=== PATIENT | male | born 1975 | race Caucasian/White ===

== ENCOUNTER 2019-08-07 07:57 | Inpatient (IN) | payer MEDICAID ==
[~2019-08-07] VITALS: Ht 177.8 cm; Wt 72.7 kg
[~2019-08-07 07:57] MED LIST: DIPH-518 PO
[2019-08-07] MEDS ORDERED: normal saline 1000ML IV soln IV ONE (08:35)
[2019-08-07 08:54] LABS: BASOPHILS % (AUTO) 0.2 % (0-1); EOSINOPHILS % (AUTO) 0.2 % (0-6); HEMATOCRIT 50.2 % (42.0-52.0); HEMOGLOBIN 17.2 g/dl (14.0-17.9); LYMPHOCYTES # (AUTO) 1.8 X10'3 (1.1-4.8); LYMPHOCYTES % (AUTO) 11.9 % (21-51); MEAN CORPUSCULAR HEMOGLOBIN 30.3 PG (27.0-31.0); MEAN CORPUSCULAR HGB CONC 34.2 g/dL (33.0-36.5); MEAN CORPUSCULAR VOLUME 88.4 FL (78-98); MEAN PLATELET VOLUME 9.6 FL (7.4-10.4); MONOCYTES # (AUTO) 1.4 X10'3 (0-0.9); MONOCYTES % (AUTO) 9.3 % (2-12); NEUTROPHILS # (AUTO) 11.6 X10'3 (1.8-7.7); NEUTROPHILS % (AUTO) 78.4 % (42-75); PLATELET COUNT 374 X10'3 (140-440); RED BLOOD COUNT 5.69 X10'6 (4.70-6.10); RED CELL DISTRIBUTION WIDTH 12.6 % (11.5-14.5); WHITE BLOOD COUNT 14.8 X10'3 (4.5-11.0)
[2019-08-07 09:03] LABS: PARTIAL THROMBOPLASTIN TIME 32 SECONDS (22-32)
[2019-08-07 09:06] LABS: ALANINE AMINOTRANSFERASE 13 U/L (12-78); ALBUMIN 3.8 G/DL (3.4-5.0); ALBUMIN/GLOBULIN RATIO 0.7 (1.1-1.5); ALKALINE PHOSPHATASE 99 IU/L (46-116); ANION GAP 9 (8-16); ASPARTATE AMINO TRANSFERASE 21 U/L (10-37); BILIRUBIN,TOTAL 0.8 MG/DL (0.1-1.0); BLOOD UREA NITROGEN 40 MG/DL (7-18); BUN/CREATININE RATIO 26.3 (5.4-32.0); CALCIUM 9.2 MG/DL (8.5-10.1); CHLORIDE 89 MMOL/L (99-107); CREATININE 1.52 MG/DL (0.60-1.10); GLUCOSE 123 MG/DL (70-104); POTASSIUM 3.6 MMOL/L (3.5-5.1); SODIUM 130 MMOL/L (135-145); TOTAL CARBON DIOXIDE 32.2 MMOL/L (24-32); TOTAL PROTEIN 8.9 G/DL (6.4-8.2); eGFR 50 ML/MIN
[2019-08-07] MEDS ORDERED: iohexol 300mg/ml 100ml inj. ONE (09:35)
[2019-08-07] MEDS ORDERED: magnesium 4gm in 100ml NS 100 ML IV PRN (10:50)
[2019-08-07] MEDS ORDERED: potassium Cl 20 mEq SR tablet PO PRN ×2 (10:50)
[2019-08-07] MEDS ORDERED: potassium CL 10mEq/100ml bag 100 ML IV PRN (10:50)
[2019-08-07] MEDS ORDERED: acetaminophen 650mg rectal suppository RC PRN (10:50)
[2019-08-07] MEDS ORDERED: magnesium 2GM in 50ml NS 50 ML IV PRN (10:50)
[2019-08-07] MEDS ORDERED: magnesium Cl slow-release 64mg tablet PO PRN (10:50)
[2019-08-07] MEDS ORDERED: ondansetron/PF 4mg/2ml inj IV ONE (11:30)
[2019-08-07] MEDS: pantoprazole 40 MG vial IV SCH (11:35)
[2019-08-07] MEDS: normal saline 1000ml 1,000 ML IV SCH ×2 (11:35→20:57)
[2019-08-07 12:01] LABS: CLARITY,URINE CLEAR (Clear); COLOR,URINE YELLOW (Yellow); GLUCOSE, URINE NEGATIVE (Neg); KETONES,URINE 40 mg/dl (Neg); LEUKOCYTE ESTERASE ,URINE NEGATIVE (Neg); NITRITES, URINE NEGATIVE (Neg); OCCULT BLOOD,URINE NEGATIVE (Neg); PROTEIN,URINE NEGATIVE (Neg); UROBILINOGEN,URINE 0.2 E.U/dL (0.2-1.0)
--- NOTE | 2019-08-07 12:01 | NUR ---
Received patient report from ER nurse Gabriella DHILLON. Awaiting arrival to room 4012A.
[2019-08-07 12:10] LABS: UA COLLECTION TYPE CLN CATCH MIDSTREAM
[2019-08-07 12:30] VITALS: BP 106/70
--- NOTE | 2019-08-07 12:54 | NUR ---
Dr. Camargo seen and examined patient. Patient stated he is passing gas, abdomen soft and not distended.
[2019-08-07] MEDS ORDERED: NO HOME MEDS (12:57)
--- NOTE | 2019-08-07 12:59 | NUR ---
Spoke with Dr. Juarez over phone and informed him that pt is passing gas, has good bowel sounds, no emesis. MD stated to leave NG tube out.
[2019-08-07] MEDS: HYDROmorphone inj. 0.5 MG/0.5 ML DISP.SYRIN IV PRN ×2 (15:24→19:22)
[2019-08-07] MEDS: ondansetron/PF 4mg/2ml inj IV PRN (17:37)
[2019-08-07 18:00] VITALS: BP 109/73
--- NOTE | 2019-08-07 18:19 | NUR ---
Problems reprioritized. Patient report given, questions answered & plan of care reviewed with Nehal DHILLON.
--- NOTE | 2019-08-07 18:52 | NUR ---
Patient in room ORTHO 4015. I have received report from Renee DHILLON and had the opportunity to ask questions and assume patient care.
[2019-08-07] MEDS: K and/or MAG REPLACEMENT MC SCH (20:00)
[2019-08-07] MEDS: diatr meglu/diatrizoate 30ml oral sol.-(3 dose) bottle PO SCH (21:09)
[2019-08-07 22:00] VITALS: BP 119/66
[2019-08-08] VITALS (17 sets, daily range): BP systolic 98–142; BP diastolic 59–89
[2019-08-08] MEDS: ketorolac trometh. 30mg/ml inj. IV PRN ×2 (00:03→20:35)
[2019-08-08] MEDS: ondansetron/PF 4mg/2ml inj IV PRN ×2 (00:09→11:23)
[2019-08-08] MEDS: proCHLORperazine 10 MG/2 ml inj IV PRN ×2 (01:23→07:30)
[2019-08-08] MEDS: HYDROmorphone inj. 0.5 MG/0.5 ML DISP.SYRIN IV PRN (05:06)
[2019-08-08] MEDS: normal saline 1000ml 1,000 ML IV SCH ×2 (05:45→19:15)
[2019-08-08 05:47] LABS: BASOPHILS % (AUTO) 0.5 % (0-1); EOSINOPHILS # (AUTO) 0.1 X10'3 (0-0.9); HEMATOCRIT 41.4 % (42.0-52.0); HEMOGLOBIN 14.2 g/dl (14.0-17.9); LYMPHOCYTES # (AUTO) 1.2 X10'3 (1.1-4.8); LYMPHOCYTES % (AUTO) 21.4 % (21-51); MEAN CORPUSCULAR HEMOGLOBIN 30.3 PG (27.0-31.0); MEAN CORPUSCULAR HGB CONC 34.3 g/dL (33.0-36.5); MEAN CORPUSCULAR VOLUME 88.3 FL (78-98); MEAN PLATELET VOLUME 9.6 FL (7.4-10.4); MONOCYTES # (AUTO) 0.9 X10'3 (0-0.9); MONOCYTES % (AUTO) 15.4 % (2-12); NEUTROPHILS # (AUTO) 3.5 X10'3 (1.8-7.7); NEUTROPHILS % (AUTO) 60.7 % (42-75); PLATELET COUNT 285 X10'3 (140-440); RED BLOOD COUNT 4.69 X10'6 (4.70-6.10); RED CELL DISTRIBUTION WIDTH 12.2 % (11.5-14.5); WHITE BLOOD COUNT 5.8 X10'3 (4.5-11.0)
[2019-08-08 05:59] LABS: ALANINE AMINOTRANSFERASE 13 U/L (12-78); ALBUMIN 3.1 G/DL (3.4-5.0); ALBUMIN/GLOBULIN RATIO 0.9 (1.1-1.5); ALKALINE PHOSPHATASE 73 IU/L (46-116); ANION GAP 6 (8-16); ASPARTATE AMINO TRANSFERASE 27 U/L (10-37); BILIRUBIN,TOTAL 0.7 MG/DL (0.1-1.0); BLOOD UREA NITROGEN 28 MG/DL (7-18); BUN/CREATININE RATIO 24.3 (5.4-32.0); CALCIUM 8.2 MG/DL (8.5-10.1); CHLORIDE 97 MMOL/L (99-107); CREATININE 1.15 MG/DL (0.60-1.10); GLUCOSE 102 MG/DL (70-104); POTASSIUM 3.3 MMOL/L (3.5-5.1); SODIUM 134 MMOL/L (135-145); TOTAL CARBON DIOXIDE 31.2 MMOL/L (24-32); TOTAL PROTEIN 6.4 G/DL (6.4-8.2); eGFR 69 ML/MIN
--- NOTE | 2019-08-08 06:16 | NUR ---
Problems reprioritized. Patient report given, questions answered & plan of care reviewed with Zuleyma DHILLON.
--- NOTE | 2019-08-08 06:30 | NUR ---
Patient in room ORTHO 4015. I have received report from Nehal DHILLON and had the opportunity to ask questions and assume patient care.
[2019-08-08] MEDS: diatr meglu/diatrizoate 30ml oral sol.-(3 dose) bottle PO SCH ×2 (07:30→10:19)
[2019-08-08] MEDS: pantoprazole 40 MG vial IV SCH (07:30)
[2019-08-08] MEDS: potassium CL 10mEq/100ml bag 100 ML IV PRN ×4 (07:31→19:16)
[2019-08-08] MEDS ORDERED: enoxaparin 40mg/0.4ml syringe SUBCUT SCH (08:00)
[2019-08-08] MEDS: K and/or MAG REPLACEMENT MC SCH ×2 (08:00→20:00)
[2019-08-08 08:19] LABS: PLATELET ESTIMATE NORMAL; TOTAL CELLS COUNTED 100
--- NOTE | 2019-08-08 09:05 | NUR ---
Patient stated he felt better and did not threw up after I gave the compazine then the oral contrast. CT scan staff gave me an estimated time of the CT scan of abdomen today at 10:30am.
[2019-08-08] MEDS: HYDROmorphone 1 mg/ml syringe IV PRN ×2 (11:14→19:07)
--- NOTE | 2019-08-08 13:58 | NUR ---
Patient confirmed to me that Dr. Juarez came by, talked to him about the need for surgery today around 4pm.
[2019-08-08] MEDS ORDERED: clindamycin phosphate 150mg/ml inj. ONE (15:37)
[2019-08-08] MEDS ORDERED: gentamicin 40 MG/1 ML inj ONE (15:37)
[2019-08-08] MEDS ORDERED: ceFOXitin 2 GM ADDVANTGE BAG 50 ML IV ONE (15:37)
[2019-08-08] MEDS ORDERED: ringers solution, lacted 1,000 ML IV SCH (15:43)
[2019-08-08] MEDS ORDERED: morphine 4 MG/ML inj SYRINge IV PRN (15:45)
[2019-08-08] MEDS ORDERED: morphine 2 MG/ML inj. syringe IV PRN (15:45)
[2019-08-08] MEDS ORDERED: labetalol 20mg/4ml (5mg/ml) syringe IV PRN (15:45)
[2019-08-08] MEDS ORDERED: fentaNYL/PF 50MCG/1 ML 2ML syringe IV PRN (15:45)
[2019-08-08] MEDS ORDERED: hydrALAZINE 20mg/ml inj. IV PRN (15:45)
[2019-08-08] MEDS ORDERED: ondansetron/PF 4mg/2ml inj IV PRN (15:45)
[2019-08-08] MEDS ORDERED: LIDOcaine 2% (20mg/ml) 5ml vial ONE (16:08)
[2019-08-08] MEDS ORDERED: propofol inj 20 ML IV ONE (16:08)
[2019-08-08] MEDS ORDERED: rocuronium 10mg/ml inj IV ONE ×2 (16:08→17:10)
[2019-08-08] MEDS ORDERED: dexamethasone sod phosphate 4mg/ml inj. ONE (16:08)
[2019-08-08] MEDS ORDERED: ondansetron/PF 4mg/2ml inj ONE (16:08)
[2019-08-08] MEDS ORDERED: fentaNYL/PF 50MCG/1 ML 2ML syringe ONE (16:09)
[2019-08-08] MEDS ORDERED: ceFOXitin 2 GM ADDvantage bag 100 ML IV ONE (16:35)
[2019-08-08] MEDS ORDERED: ceFOXitin sod/dextrose 2g/50ml 50 ML IV ONE (16:35)
[2019-08-08] MEDS ORDERED: sevoflurane 250ml liquid IH ONE (16:38)
[2019-08-08] MEDS ORDERED: sugammadex 200mg/2ml injection IV ONE (17:16)
[2019-08-08] MEDS ORDERED: labetalol 20mg/4ml (5mg/ml) syringe IV ONE (17:17)
--- NOTE | 2019-08-08 17:50 | NUR ---
Received from OR via BED , accompanied by Anesthesiologist DR GARCIA and report given by Anesthesiolgist. PATIENT WAKING UP, DENIES PAIN, V/S WNL, NEUROVASCULAR CHECKS INTACT, 18G PIV LUE, SCD ON, ISLAND DRESSING TO ABDOMEN CDI. NG TUBE TO LWS TO RIGHT NARES WITH DARK BROWNISH GREEN APPROX 40CC IN DRAIN. F/C DRAINING CLEAR YELLOW URINE.
[2019-08-08] MEDS: fentaNYL/PF 50MCG/1 ML 2ML syringe IV PRN ×2 (18:00→18:06)
--- NOTE | 2019-08-08 18:23 | NUR ---
Problems reprioritized. Patient report given, questions answered & plan of care reviewed with Rashida DHILLON.
--- NOTE | 2019-08-08 18:30 | NUR ---
Patient in room ORTHO 4015. I have received report from JACQUIE Amor and had the opportunity to ask questions and assume patient care.
--- NOTE | 2019-08-08 18:40 | NUR ---
PATIENT WAKING UP, DENIES PAIN, V/S WNL, NEUROVASCULAR CHECKS INTACT, 18G PIV LUE, SCD ON, ISLAND DRESSING TO ABDOMEN CDI. NG TUBE TO LWS TO RIGHT NARES WITH DARK BROWNISH GREEN APPROX 40CC IN DRAIN. F/C DRAINING CLEAR YELLOW URINE. PATIENT TAKEN TO 4015B WITH ALL BELONGINGS AND HOOKED UP TO MONITORS IN ROOM AND REPORT GIVEN TO INSULATOR TECHNICIAN WHO HAS TAKEN OVER PATIENT CARE.
[2019-08-08] MEDS: ceFOXitin sod/dextrose 2g/50ml 50 ML IV SCH (20:38)
[2019-08-09] MEDS: HYDROmorphone 1 mg/ml syringe IV PRN ×6 (01:23→22:36)
[2019-08-09] MEDS: ceFOXitin sod/dextrose 2g/50ml 50 ML IV SCH ×4 (01:23→19:40)
[2019-08-09 02:45] VITALS: BP 118/71
[2019-08-09] MEDS: normal saline 1000ml 1,000 ML IV SCH ×3 (02:50→23:28)
[2019-08-09] MEDS: ketorolac trometh. 30mg/ml inj. IV PRN ×3 (03:24→18:56)
[2019-08-09 06:00] VITALS: BP 123/69
[2019-08-09 06:11] LABS: ALANINE AMINOTRANSFERASE 13 U/L (12-78); ALBUMIN 2.8 G/DL (3.4-5.0); ALBUMIN/GLOBULIN RATIO 0.8 (1.1-1.5); ALKALINE PHOSPHATASE 66 IU/L (46-116); ANION GAP 8 (8-16); ASPARTATE AMINO TRANSFERASE 22 U/L (10-37); BILIRUBIN,TOTAL 0.5 MG/DL (0.1-1.0); BLOOD UREA NITROGEN 24 MG/DL (7-18); CALCIUM 8.5 MG/DL (8.5-10.1); CHLORIDE 101 MMOL/L (99-107); GLUCOSE 100 MG/DL (70-104); MAGNESIUM 2.1 MG/DL (1.5-2.4); POTASSIUM 4.1 MMOL/L (3.5-5.1); SODIUM 133 MMOL/L (135-145); TOTAL CARBON DIOXIDE 24.5 MMOL/L (24-32); TOTAL PROTEIN 6.3 G/DL (6.4-8.2); eGFR 82 ML/MIN
--- NOTE | 2019-08-09 06:24 | NUR ---
Problems reprioritized. Patient report given, questions answered & plan of care reviewed with JACQUIE Beyer and JACQUIE De La Rosa.
[2019-08-09 07:16] LABS: BASOPHILS % (AUTO) 0.3 % (0-1); EOSINOPHILS % (AUTO) 0.5 % (0-6); HEMOGLOBIN 14.3 g/dl (14.0-17.9); LYMPHOCYTES # (AUTO) 0.6 X10'3 (1.1-4.8); LYMPHOCYTES % (AUTO) 12.2 % (21-51); MEAN CORPUSCULAR HEMOGLOBIN 30.1 PG (27.0-31.0); MEAN CORPUSCULAR VOLUME 88.7 FL (78-98); MEAN PLATELET VOLUME 8.7 FL (7.4-10.4); MONOCYTES # (AUTO) 0.6 X10'3 (0-0.9); PLATELET COUNT 303 X10'3 (140-440); RED BLOOD COUNT 4.74 X10'6 (4.70-6.10); RED CELL DISTRIBUTION WIDTH 12.3 % (11.5-14.5); WHITE BLOOD COUNT 5.3 X10'3 (4.5-11.0)
[2019-08-09] MEDS: K and/or MAG REPLACEMENT MC SCH ×2 (08:00→20:00)
[2019-08-09] MEDS: pantoprazole 40 MG vial IV SCH (08:05)
[2019-08-09] MEDS: ondansetron/PF 4mg/2ml inj IV PRN ×2 (08:06→17:04)
--- NOTE | 2019-08-09 08:30 | NUR ---
Encouraging patient to ambulate! Explained importance of ambulation and deep breathing. Patient agrees to walk after pain med. Educated on holding pillow to assist with sitting up and ambulating. Sit up on side of bed, nauseated. Instructed to do knee lifts as he can while RN gets zofran. Return to recline in bed. Patient more receptive to education today. IS given
[2019-08-09 10:00] VITALS: BP 125/70
--- NOTE | 2019-08-09 14:00 | NUR ---
Dr Juarez here earlier. Leave NG tube to low, int suction. May have "sips" of sprite per pt request and a popsicle. Minimal ice chips.
--- NOTE | 2019-08-09 14:41 | NUR ---
Patient is frustrated and wants to go home. Educated to risk of infection, vomiting, recurrent bowel obstruction. Patient calmer and agreeable to staying in hospital following Dr silva. Request popsicles from dietary as stated by Dr Juarez.
[2019-08-09 18:00] VITALS: BP 135/69
--- NOTE | 2019-08-09 18:00 | NUR ---
Patient in room ORTH[facility] 4015. I have received report from JACQUIE Beyer and had the opportunity to ask questions and assume patient care.
--- NOTE | 2019-08-09 18:06 | NUR ---
Problems reprioritized. Patient report given, questions answered & plan of care reviewed with Rashida DHILLON.
[2019-08-09] MEDS: mineral oil/petrolatum, white cream 113gm jar TP SCH (19:40)
[2019-08-09] MEDS: proCHLORperazine 10 MG/2 ml inj IV PRN (20:58)
[2019-08-10] MEDS: ketorolac trometh. 30mg/ml inj. IV PRN ×4 (01:34→22:44)
[2019-08-10] MEDS: ceFOXitin sod/dextrose 2g/50ml 50 ML IV SCH ×4 (01:34→19:36)
[2019-08-10] MEDS: ondansetron/PF 4mg/2ml inj IV PRN ×3 (04:01→22:42)
[2019-08-10] MEDS: HYDROmorphone 1 mg/ml syringe IV PRN ×4 (04:01→19:45)
[2019-08-10 05:43] LABS: BASOPHILS % (AUTO) 0.3 % (0-1); EOSINOPHILS # (AUTO) 0.1 X10'3 (0-0.9); EOSINOPHILS % (AUTO) 1.7 % (0-6); HEMATOCRIT 37.5 % (42.0-52.0); HEMOGLOBIN 12.9 g/dl (14.0-17.9); LYMPHOCYTES # (AUTO) 0.7 X10'3 (1.1-4.8); LYMPHOCYTES % (AUTO) 15.7 % (21-51); MEAN CORPUSCULAR HEMOGLOBIN 30.8 PG (27.0-31.0); MEAN CORPUSCULAR HGB CONC 34.4 g/dL (33.0-36.5); MEAN CORPUSCULAR VOLUME 89.5 FL (78-98); MONOCYTES # (AUTO) 0.6 X10'3 (0-0.9); MONOCYTES % (AUTO) 12.8 % (2-12); NEUTROPHILS # (AUTO) 3.1 X10'3 (1.8-7.7); NEUTROPHILS % (AUTO) 69.5 % (42-75); PLATELET COUNT 238 X10'3 (140-440); RED BLOOD COUNT 4.18 X10'6 (4.70-6.10); RED CELL DISTRIBUTION WIDTH 12.3 % (11.5-14.5); WHITE BLOOD COUNT 4.5 X10'3 (4.5-11.0)
[2019-08-10 05:57] LABS: ALANINE AMINOTRANSFERASE 12 U/L (12-78); ALBUMIN 2.6 G/DL (3.4-5.0); ALBUMIN/GLOBULIN RATIO 0.8 (1.1-1.5); ALKALINE PHOSPHATASE 55 IU/L (46-116); ANION GAP 7 (8-16); ASPARTATE AMINO TRANSFERASE 21 U/L (10-37); BILIRUBIN,TOTAL 0.3 MG/DL (0.1-1.0); BLOOD UREA NITROGEN 25 MG/DL (7-18); BUN/CREATININE RATIO 25.8 (5.4-32.0); CALCIUM 8.1 MG/DL (8.5-10.1); CHLORIDE 103 MMOL/L (99-107); CREATININE 0.97 MG/DL (0.60-1.10); GLUCOSE 98 MG/DL (70-104); MAGNESIUM 2.2 MG/DL (1.5-2.4); POTASSIUM 3.6 MMOL/L (3.5-5.1); SODIUM 138 MMOL/L (135-145); TOTAL CARBON DIOXIDE 28.2 MMOL/L (24-32); TOTAL PROTEIN 5.9 G/DL (6.4-8.2); eGFR 84 ML/MIN
--- NOTE | 2019-08-10 06:43 | NUR ---
Problems reprioritized. Patient report given, questions answered & plan of care reviewed with JACQUIE Bundy.
--- NOTE | 2019-08-10 06:47 | NUR ---
Problems reprioritized. Patient report given, questions answered & plan of care reviewed with JACQUIE Gonzales.
--- NOTE | 2019-08-10 06:56 | NUR ---
Patient in room ORTHO 4015. I have received report from JACQUIE SWEET and had the opportunity to ask questions and assume patient care.
[2019-08-10 06:58] VITALS: BP 109/54
[2019-08-10] MEDS: proCHLORperazine 10 MG/2 ml inj IV PRN ×2 (07:03→17:12)
[2019-08-10] MEDS: pantoprazole 40 MG vial IV SCH (07:03)
[2019-08-10] MEDS: mineral oil/petrolatum, white cream 113gm jar TP SCH ×2 (07:22→19:40)
[2019-08-10] MEDS: K and/or MAG REPLACEMENT MC SCH ×2 (08:00→20:00)
[2019-08-10] MEDS: normal saline 1000ml 1,000 ML IV SCH ×2 (09:27→19:35)
--- NOTE | 2019-08-10 09:34 | NUR ---
Patient refusing to ambulate. Explained to patient importance of ambulation especially for post op. Patient states, "I walked yesterday and it didn't do a damn thing." Ambulation encouraged and pain med given administered as ordered. Patient agrees to ambulate after pain med "starts working".
[2019-08-10 10:55] VITALS: BP 119/71
--- NOTE | 2019-08-10 11:17 | NUR ---
patient continues to refuse to ambulate for this nurse and also pct. reinforced importance of ambulating and patient states, "I know, I know. Both of the came and talked to me. I will, but just not right now." will continue to encourage patient to ambulate.
[2019-08-10 18:00] VITALS: BP 137/63
--- NOTE | 2019-08-10 18:32 | NUR ---
Problems reprioritized. Patient report given, questions answered & plan of care reviewed with JACQUIE SWEET AND JACQUIE PAIZ.
--- NOTE | 2019-08-10 18:43 | NUR ---
Initial: patient presented to ED with abdominal pain, nausea, vomiting with bloody emesis. Per H&P patient reported that three days [employer] had hernia surgery at [facility] and left AMA afterwards. No BM for five days [employer]. Pt is NPO day 4, s/p exploratory lap on 08/07 d/t SBO. Per surgeon note diet will advance as GI function returns. Has NG tube for suction. Still no BM. Other GI symptoms include abdominal pain and nausea. Normal bowel sounds, flatus present. Recommend: 1. Advance diet as medically indicated to regular 2. bowel care as needed 3. weight per rx Addendum: 08/10/19 at [address] Amended: Links added.
--- NOTE | 2019-08-10 19:15 | NUR ---
recived report from JACQUIE Patel
--- NOTE | 2019-08-10 19:16 | NUR ---
Patient in room ORTHO 4015. I have received report from Serg DHILLON and had the opportunity to ask questions and assume patient care.
--- NOTE | 2019-08-10 19:17 | NUR ---
Problems reprioritized. Patient report given, questions answered & plan of care reviewed with Jad DHILLON.
[2019-08-10 22:02] VITALS: BP 116/63
[2019-08-11] MEDS: HYDROmorphone 1 mg/ml syringe IV PRN ×2 (01:54→13:53)
[2019-08-11] MEDS: ceFOXitin sod/dextrose 2g/50ml 50 ML IV SCH ×3 (01:58→14:07)
--- NOTE | 2019-08-11 04:30 | NUR ---
patient vomited on to the floor so it was not measured. Amount entered was an estimate. Addendum: 08/11/19 at 0431 by Jad Starks RN Amended: Links added.
[2019-08-11] MEDS: normal saline 1000ml 1,000 ML IV SCH ×2 (04:50→08:29)
[2019-08-11] MEDS: ketorolac trometh. 30mg/ml inj. IV PRN ×2 (05:20→12:49)
[2019-08-11 06:00] VITALS: BP 115/75
[2019-08-11 06:01] LABS: BASOPHILS % (AUTO) 0.4 % (0-1); EOSINOPHILS # (AUTO) 0.1 X10'3 (0-0.9); EOSINOPHILS % (AUTO) 2.1 % (0-6); HEMATOCRIT 36.4 % (42.0-52.0); HEMOGLOBIN 12.4 g/dl (14.0-17.9); LYMPHOCYTES # (AUTO) 1.2 X10'3 (1.1-4.8); LYMPHOCYTES % (AUTO) 17.7 % (21-51); MEAN CORPUSCULAR HEMOGLOBIN 30.5 PG (27.0-31.0); MEAN CORPUSCULAR VOLUME 89.7 FL (78-98); MONOCYTES # (AUTO) 0.7 X10'3 (0-0.9); MONOCYTES % (AUTO) 10.4 % (2-12); NEUTROPHILS # (AUTO) 4.8 X10'3 (1.8-7.7); NEUTROPHILS % (AUTO) 69.4 % (42-75); PLATELET COUNT 290 X10'3 (140-440); RED BLOOD COUNT 4.06 X10'6 (4.70-6.10); RED CELL DISTRIBUTION WIDTH 12.3 % (11.5-14.5); WHITE BLOOD COUNT 6.9 X10'3 (4.5-11.0)
[2019-08-11 06:09] LABS: ALANINE AMINOTRANSFERASE 12 U/L (12-78); ALBUMIN 2.6 G/DL (3.4-5.0); ALBUMIN/GLOBULIN RATIO 0.7 (1.1-1.5); ALKALINE PHOSPHATASE 55 IU/L (46-116); ANION GAP 9 (8-16); BILIRUBIN,TOTAL 0.5 MG/DL (0.1-1.0); BLOOD UREA NITROGEN 23 MG/DL (7-18); BUN/CREATININE RATIO 24.5 (5.4-32.0); CALCIUM 8.3 MG/DL (8.5-10.1); CHLORIDE 101 MMOL/L (99-107); CREATININE 0.94 MG/DL (0.60-1.10); GLUCOSE 78 MG/DL (70-104); MAGNESIUM 2.1 MG/DL (1.5-2.4); SODIUM 137 MMOL/L (135-145); TOTAL CARBON DIOXIDE 26.9 MMOL/L (24-32); TOTAL PROTEIN 6.1 G/DL (6.4-8.2); eGFR 88 ML/MIN
--- NOTE | 2019-08-11 06:10 | NUR ---
Problems reprioritized. Patient report given, questions answered & plan of care reviewed with JACQUIE Renteria.
[2019-08-11 06:19] LABS: ASPARTATE AMINO TRANSFERASE 27 U/L (10-37); POTASSIUM 4.1 MMOL/L (3.5-5.1)
--- NOTE | 2019-08-11 06:30 | NUR ---
Patient in room ORTHO 4015. I have received report from Jad DHILLON and had the opportunity to ask questions and assume patient care.
--- NOTE | 2019-08-11 06:31 | NUR ---
Problems reprioritized. Patient report given to JACQUIE Renteria by JACQUIE Bhatt, questions answered & plan of care reviewed with [].
[2019-08-11] MEDS: mineral oil/petrolatum, white cream 113gm jar TP SCH (07:49)
[2019-08-11] MEDS: pantoprazole 40 MG vial IV SCH (07:49)
[2019-08-11] MEDS ORDERED: enoxaparin 40mg/0.4ml syringe SUBCUT SCH (08:00)
[2019-08-11] MEDS: K and/or MAG REPLACEMENT MC SCH (08:00)
--- NOTE | 2019-08-11 09:03 | NUR ---
: [id number] Re: [id number] Markel Hilario Patient stated he is "ready to leave and wants the NG out and he wants a diet order." Thanks [facility]. This message sent to hospitalist at this time.
[2019-08-11 10:00] VITALS: BP 115/68
[2019-08-11] MEDS: ondansetron/PF 4mg/2ml inj IV PRN (12:43)
--- NOTE | 2019-08-11 17:35 | NUR ---
[facility] [id number] Re: Markel Hilario Patient is about to leave AMA no matter how much information about how dangerous it is. but patient is insistent on leaving. this message sent to hospitalist. Hospitalist stated they have done all they can for patient. Attempted to call surgeon but did not connect. Patient IV taken out in parking lot, 4 island dressings given to patient and AMA form was signed and in chart. Patient stated he will have ice chips at home, keep dressing clean, and take Milk of Mag every 12 hours.
[2019-08-11] MEDS ORDERED: magnesium hydroxide 30ml (MOM) UD suspension PO SCH (20:00)
[2019-08-12] MEDS ORDERED: pantoprazole 40mg Tablet.DR PO SCH (07:30)
== END 2019-08-11 17:31 | disposition left against medical advice (07) | DRG 230 ==
LOC: ER 07:58 → ED HOLD 10:50 → ORTHO 4S 12:15
PROVIDERS: ADMIT Family Medicine; ATTEND Internal Medicine
PROC: BW211ZZ Computerized Tomography (CT Scan) of Abdomen and Pelvis using Low Osmolar Contrast (ICD-10-PCS; 2019-08-07)
PROC: 0DS80ZZ Reposition Small Intestine, Open Approach (ICD-10-PCS; principal; 2019-08-08 16:38)
DX: K56.601 Complete intestinal obstruction, unspecified as to cause (principal); E87.1 Hypo-osmolality and hyponatremia; J43.9 Emphysema, unspecified; E87.6 Hypokalemia; N18.9 Chronic kidney disease, unspecified; F17.210 Nicotine dependence, cigarettes, uncomplicated; Z53.29 Procedure and treatment not carried out because of patient's decision for other reasons; F15.90 Other stimulant use, unspecified, uncomplicated; K62.5 Hemorrhage of anus and rectum; Z86.79 Personal history of other diseases of the circulatory system; K56.7 Ileus, unspecified
CPT/HCPCS: 36415; 71045; 74176; 74177; 80053; 81003; 82948; 83605; 83735; 84145; 85025; 85610; 85730; 87040; 87081; 93005; 96360; 99285; A4215; A4618; A7000; C1758; C9113; C9399; G0378; J0694; J0780; J1100; J1170; J1580; J1650; J1885; J2001; J2405; J2704; J3010; J3480; J3490; J7030; J7120; Q9963; Q9967

== ENCOUNTER 2019-08-16 12:09 | Emergency (ER) | payer MEDICAID ==
[~2019-08-16] VITALS: Ht 177.8 cm; Wt 62.7 kg
[~2019-08-16 12:09] MED LIST changes: -DIPH-518 PO; +NO HOME MEDS
[2019-08-16 13:18] LABS: BASOPHILS # (AUTO) 0.1 X10'3 (0-0.2); BASOPHILS % (AUTO) 0.6 % (0-1); EOSINOPHILS # (AUTO) 0.2 X10'3 (0-0.9); EOSINOPHILS % (AUTO) 1.2 % (0-6); HEMATOCRIT 42.5 % (42.0-52.0); HEMOGLOBIN 14.1 g/dl (14.0-17.9); LYMPHOCYTES # (AUTO) 2.7 X10'3 (1.1-4.8); LYMPHOCYTES % (AUTO) 21.5 % (21-51); MEAN CORPUSCULAR HEMOGLOBIN 29.7 PG (27.0-31.0); MEAN CORPUSCULAR HGB CONC 33.3 g/dL (33.0-36.5); MEAN CORPUSCULAR VOLUME 89.1 FL (78-98); MEAN PLATELET VOLUME 8.1 FL (7.4-10.4); MONOCYTES # (AUTO) 0.8 X10'3 (0-0.9); MONOCYTES % (AUTO) 6.2 % (2-12); NEUTROPHILS % (AUTO) 70.5 % (42-75); PLATELET COUNT 546 X10'3 (140-440); RED BLOOD COUNT 4.77 X10'6 (4.70-6.10); RED CELL DISTRIBUTION WIDTH 12.2 % (11.5-14.5); WHITE BLOOD COUNT 12.7 X10'3 (4.5-11.0)
[2019-08-16 13:30] LABS: PARTIAL THROMBOPLASTIN TIME 31 SECONDS (22-32)
[2019-08-16 13:33] LABS: ALANINE AMINOTRANSFERASE 19 U/L (12-78); ALBUMIN/GLOBULIN RATIO 0.9 (1.1-1.5); ALKALINE PHOSPHATASE 84 IU/L (46-116); ANION GAP 5 (8-16); ASPARTATE AMINO TRANSFERASE 20 U/L (10-37); BILIRUBIN,TOTAL 0.3 MG/DL (0.1-1.0); BLOOD UREA NITROGEN 14 MG/DL (7-18); BUN/CREATININE RATIO 14.3 (5.4-32.0); CALCIUM 8.7 MG/DL (8.5-10.1); CHLORIDE 102 MMOL/L (99-107); CREATININE 0.98 MG/DL (0.60-1.10); POTASSIUM 3.3 MMOL/L (3.5-5.1); SODIUM 137 MMOL/L (135-145); TOTAL CARBON DIOXIDE 29.7 MMOL/L (24-32); TOTAL PROTEIN 6.5 G/DL (6.4-8.2); eGFR 83 ML/MIN
[2019-08-16 13:34] LABS: GLUCOSE 115 MG/DL (70-104)
[2019-08-16 14:39] LABS: CLARITY,URINE CLOUDY (Clear); GLUCOSE, URINE NEGATIVE (Neg); KETONES,URINE NEGATIVE (Neg); LEUKOCYTE ESTERASE ,URINE NEGATIVE (Neg); NITRITES, URINE NEGATIVE (Neg); OCCULT BLOOD,URINE NEGATIVE (Neg); PH,URINE 6.5 (4.8-8.0); PROTEIN,URINE 30 mg/dl (Neg)
[2019-08-16 15:09] LABS: UA COLLECTION TYPE CLN CATCH MIDSTREAM
[2019-08-16 15:10] LABS: COLOR,URINE DARK YELLOW (Yellow)
[2019-08-16 15:14] LABS: SQUAMOUS EPITHELIAL CELL,UR FEW /LPF (FEW)
[2019-08-16 15:15] LABS: BACTERIA,URINE 1+ /HPF (Neg); RBC,URINE NONE SEEN /HPF (0-2); WBC,URINE 0-4 /HPF (0-4)
[2019-08-16] MEDS ORDERED: HYDROcodone/acetaminophen 5mg/325mg tablet PO ONE (15:20)
[2019-08-16 15:22] LABS: MUCUS STRANDS FEW /LPF (Neg)
[2019-08-16 15:24] LABS: AMMONIUM BIURATE CRYSTALS 4+ /HPF (NEGATIVE)
[2019-08-16] MEDS ORDERED: HYDR-3965 PO (15:27)
[2019-08-16 15:32] VITALS: BP 120/58
== END 2019-08-16 15:31 | disposition home or self-care (01) ==
LOC: ER 12:09
DX: G89.18 Other acute postprocedural pain (principal); R11.0 Nausea; R79.1 Abnormal coagulation profile; F15.90 Other stimulant use, unspecified, uncomplicated; Z60.2 Problems related to living alone; Z98.890 Other specified postprocedural states; Z56.0 Unemployment, unspecified; Z88.1 Allergy status to other antibiotic agents; Z79.899 Other long term (current) drug therapy
CPT/HCPCS: 36415; 71045; 80053; 81001; 83605; 84145; 85025; 85610; 85730; 87040; 99284